=== PATIENT | female | born 1985 | race Caucasian/White ===

== ENCOUNTER 2017-12-30 11:52 | Emergency (ER) | payer MEDICAID ==
[2017-12-30 12:12] VITALS: BP 119/92
--- NOTE | 2017-12-30 14:09 | ED Physician Documentation ---
History of Present Illness - Stated complaint Stated Complaint: EYE SWELLING - Chief complaint Chief Complaint: Heent - History obtained from History obtained from: Patient - History of Present Illness Timing: How many days ago (5) Pain level max: 3 Pain level now: 3 Improved by: nothing Worsened by: nothing - Additonal information Additional information: States R upper eyelid is painful for 5 days, started swelling today. States temp 100.5 at home today. States had recent dental work done as well. Has had a sore throat for the past 5 days as well. Is not currently on abx. Took tylenol at 0800 today. 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 Review of Systems Constitutional: reports: Fever Eyes: reports: Discharge (yellow) Ears: denies: Ear pain Nose: reports: Rhinorrhea / runny nose, Congestion Throat: reports: Sore throat Cardiac: denies: Chest pain / pressure Respiratory: denies: Cough GI: denies: Nausea, Vomiting, Diarrhea : denies: Now EGA Skin: denies: Rash PD PAST MEDICAL HISTORY - Past Medical History Past Medical History: Yes Cardiovascular: Hypertension Psych: Depression, Anxiety, ADD/ADHD, Post traumatic stress disorder Other Past Medical History: Metabolic syndrome - Past Surgical History Past Surgical History: Yes General: Cholecystectomy - Present Medications Home Medications: Ambulatory Orders Medication Instructions Recorded Confirmed Cyclobenzaprine [Flexeril] 10 mg PO TID PRN 12/30/17 12/30/17 Dextroamphetamine/Amphetamine 20 mg PO 12/30/17 [Adderall 20 mg Tablet] Dextroamphetamine/Amphetamine 10 mg PO 12/30/17 [Adderall Xr 10 mg Capsule] Erythromycin Base [Erythromycin 1 applic RIGHTEYE QID 7 Days #1 12/30/17 Ophthalmic Ointment] oint...g. Gabapentin 600 mg PO TID 12/30/17 12/30/17 Lisinopril [Prinivil] 10 mg PO 12/30/17 Propranolol [Inderal] 20 mg PO BID 12/30/17 12/30/17 Venlafaxine ER [Effexor ER] 37.5 mg PO DAILY 12/30/17 12/30/17 buPROPion [Wellbutrin Sr] 100 mg PO BID 12/30/17 12/30/17 clonazePAM [Clonazepam] 1 mg PO 03/07/18 - Allergies Allergies/Adverse Reactions: Allergies Allergy/AdvReac Type Severity Reaction Status Date / Time ciprofloxacin [From Cipro] Allergy Anaphylaxis Verified 12/30/17 12:12 Penicillins Allergy Hives Verified 12/30/17 12:12 Sulfa (Sulfonamide Allergy Hives Verified 12/30/17 12:12 Antibiotics) - Living Situation Living Situation: reports: With family Living Arrangement: reports: At home - Social History Does the pt smoke?: No Smoking Status: Never smoker Does the pt drink ETOH?: No Does the pt have substance abuse?: No - Immunizations Immunizations are current?: Yes PD ED PE NORMAL - Vitals Vital signs reviewed: Yes - General General: Alert and oriented X 3, No acute distress - HEENT HEENT: PERRL (Mild right sided conjunctivitis with slight yellow drainage.), EOMI, Ears normal, Moist mucous membranes, Other (Mild posterior pharyngeal erythema, no tonsillar exudates. Uvula midline. Normal phonation.) - Neck Neck: Supple, no meningeal sign - Cardiac Cardiac: RRR, Strong equal pulses - Respiratory Respiratory: No respiratory distress, Clear bilaterally - Abdomen Abdomen: Soft, Non tender, Non distended - Derm Derm: Warm and dry, No rash - Neuro Neuro: Alert and oriented X 3 - Psych Psych: Normal mood, Normal affect Results - Vitals Vitals: Vital Signs - 24 hr 12/30/17 12:08 Temperature 36.5 C Heart Rate 81 Respiratory 16 Rate Blood Pressure 119/92 H O2 Saturation 100 Oxygen O2 Source Room air PD MEDICAL DECISION MAKING - ED course Complexity details: considered differential, d/w patient ED course: Patient is a 32-year-old female who presents to the emergency department with what appears to be a right eye bacterial conjunctivitis. Will place on erythromycin ointment given her multiple allergies. No evidence of strep pharyngitis, pneumonia, sepsis, facial cellulitis or orbital cellulitis. Patient counseled regarding signs and symptoms for which I believe and urgent re -evaluation would be necessary. Patient with good understanding of and agreement to plan and is comfortable going home at this time This document was made in part using voice recognition software. While efforts are made to proofread this document, sound alike and grammatical errors may occur. Departure - Departure Disposition: 01 Home, Self Care Clinical Impression: Bacterial conjunctivitis of right eye, Viral syndrome Condition: Good Instructions: ED Conjunctivitis Bacterial Follow-Up: Ruby Varma MD [Primary Care Provider] - Within 1 week Prescriptions: Erythromycin Base [Erythromycin Ophthalmic Ointment] 1 applic RIGHTEYE QID 7 Days #1 oint...g. Comments: Return if you worsen. Use the antibiotic drops as prescribed. Discharge Date/Time: 12/30/17 14:34
== END 2017-12-30 14:34 | disposition home or self-care (01) ==
LOC: ED 11:52
DX: H10.021 Other mucopurulent conjunctivitis, right eye (principal); B34.9 Viral infection, unspecified; I10 Essential (primary) hypertension
CPT/HCPCS: 99283